=== PATIENT | female | born 1975 | race Caucasian/White ===

== ENCOUNTER 2017-03-27 07:24 | Emergency (ER) | payer MEDICAID ==
--- NOTE | 2017-03-27 07:50 | ER Document Report ---
ED GI/ - General Chief Complaint: Abdominal Pain Stated Complaint: STOMACH PAIN Time Seen by Provider: 03/27/17 07:49 Mode of Arrival: Ambulatory Information source: Patient Notes: 41-year-old female complaining of diarrhea up to 10 times per day for 2 months with abdominal cramping. Similar episode in 2013 in which stool cultures and C. difficile were negative but the Cipro and Flagyl that I prescribed stopped the diarrhea. She did not see gastroenterology for follow-up as recommended. No fever. Tearful. TRAVEL OUTSIDE OF THE [place] IN LAST 30 DAYS: No - Related Data Allergies/Adverse Reactions: No Known Allergies Allergy (Verified 03/27/17 07:29) Past Medical History - General Information source: Patient - Social History Smoking Status: Current Every Day Smoker Frequency of alcohol use: None Drug Abuse: None Lives with: Family Family History: None Renal/ Medical History: Denies: Hx Peritoneal Dialysis Past Surgical History: Reports: Hx Tubal Ligation Review of Systems - Review of Systems Constitutional: No symptoms reported EENT: No symptoms reported Cardiovascular: No symptoms reported Respiratory: No symptoms reported Gastrointestinal: See HPI Genitourinary: No symptoms reported Female Genitourinary: No symptoms reported Musculoskeletal: No symptoms reported Skin: No symptoms reported Hematologic/Lymphatic: No symptoms reported Neurological/Psychological: No symptoms reported Physical Exam - Vital signs Vitals: Temp Pulse Resp BP Pulse Ox 97.7 F 62 16 109/66 99 03/27/17 07:25 03/27/17 07:25 03/27/17 07:25 03/27/17 07:25 03/27/17 07:25 Interpretation: Normal - General General appearance: Appears well, Alert, Anxious Notes: tearful - HEENT Head: Normocephalic, Atraumatic Eyes: Normal Conjunctiva: Normal Pupils: PERRL Mucous membranes: Dry Pharynx: Normal Neck: Supple. No: Lymphadenopathy - Respiratory Respiratory status: No respiratory distress Chest status: Nontender Breath sounds: Normal Chest palpation: Normal - Cardiovascular Rhythm: Regular Heart sounds: Normal auscultation Murmur: No - Abdominal Inspection: Normal Distension: No distension Bowel sounds: Normal Tenderness: Nontender. No: Tender Organomegaly: No organomegaly - Back Back: Normal, Nontender. No: CVA tenderness - Extremities General upper extremity: Normal inspection, Nontender, Normal color, Normal ROM , Normal temperature General lower extremity: Normal inspection, Nontender, Normal color, Normal ROM , Normal temperature, Normal weight bearing. No: Regino's sign - Neurological Neuro grossly intact: Yes Cognition: Normal Orientation: AAOx4 Jose Manuel Coma Scale Eye Opening: Spontaneous [place] Coma Scale Verbal: Oriented Jose Manuel Coma Scale Motor: Obeys Commands Jose Manuel Coma Scale Total: 15 Speech: Normal Motor strength normal: LUE, RUE, LLE, RLE Sensory: Normal - Psychological Associated symptoms: Normal affect, Normal mood - Skin Skin Temperature: Warm Skin Moisture: Dry Skin Color: Normal Skin irregularity: negative: Rash Course - Re-evaluation Re-evalutation: 03/27/17 09:15 serum white count elevated, seg 79%, chem OK, negative , tsh pending 03/27/17 09:16 03/27/17 09:16 03/27/17 09:40 tsh is normal, copy given to pt - Vital Signs Vital signs: Temp Pulse Resp BP Pulse Ox 97.7 F 62 16 109/66 99 03/27/17 07:25 03/27/17 07:25 03/27/17 07:25 03/27/17 07:25 03/27/17 07:25 - Laboratory Result Diagrams: 03/27/17 08:01 03/27/17 08:01 Laboratory results interpreted by me: 03/27/17 03/27/17 08:01 08:01 WBC 15.6 H RDW 14.1 H Seg Neutrophils % 79.0 H Absolute Neutrophils 12.4 H Sodium 146.8 H Chloride 109 H BUN 6 L - EKG Interpretation by Me EKG shows normal: Sinus rhythm, Intervals - qt interval is 440 Rate: Tachycardia - 106 Discharge - Discharge Clinical Impression: Chronic diarrhea Condition: Good Disposition: HOME, SELF-CARE Instructions: Diarrhea, Nonspecific ([facility]) Additional Instructions: please call and 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 you need a colonoscopy. eat yogurt with active bacteria culture like chobani all the stool cultures and c. diff culture were negative in November. call me in 1 hour for the thyroid screening test result copy of labs given to you Please complete the patient satisfaction survey if you get one, and return it.. If you do not receive a survey, then you can go to the [facility] website, [email or web address] and place your comments about your very good care. Thank you very much. It was a pleasure being your medical provider today. Prescriptions: Ciprofloxacin HCl [Cipro 500 mg Tablet] 500 mg PO BID #10 tablet Forms: Return to Work Referrals: FLETCHER AUGUSTINE MD [ACTIVE STAFF] - Follow up as needed
[2017-03-27 08:39] LABS: ABSOLUTE BASOPHILS # (AUTO) 0.1 10^3/uL (0.0-0.2); ABSOLUTE EOSINOPHILS # (AUTO) 0.2 10^3/uL (0.0-0.6); ABSOLUTE LYMPHOCYTES (AUTO) 2.3 10^3/uL (0.5-4.7); ABSOLUTE MONOCYTES (AUTO) 0.7 10^3/uL (0.1-1.4); ABSOLUTE NEUT (AUTO) 12.4 10^3/uL (1.7-8.2); BASOPHILS % (AUTO) 0.3 % (0-2); EOSINOPHILS % (AUTO) 1.4 % (0-6); HEMATOCRIT 43.4 % (36.0-47.0); HEMOGLOBIN 13.9 g/dL (12.0-15.5); HGB HCT DIFFERENCE -1.7; MEAN CORPUSCULAR HEMOGLOBIN 30.7 pg (27.0-33.4); MEAN CORPUSCULAR HGB CONC 32.1 g/dL (32.0-36.0); MEAN CORPUSCULAR VOLUME 96 fl (80-97); MONOCYTES % (AUTO) 4.3 % (3-13); RED BLOOD COUNT 4.54 10^6/uL (3.72-5.28); RED CELL DISTRIBUTION WIDTH 14.1 % (11.5-14.0); WHITE BLOOD COUNT 15.6 10^3/uL (4.0-10.5)
[2017-03-27 09:06] LABS: ALANINE AMINOTRANSFERASE 15 U/L (9-52); ALBUMIN 4.3 g/dL (3.5-5.0); ALKALINE PHOSPHATASE 78 U/L (38-126); ANION GAP 14 (5-19); ASPARTATE AMINO TRANSFERASE 14 U/L (14-36); BILIRUBIN,DIRECT 0.3 mg/dL (0.0-0.4); BILIRUBIN,TOTAL 0.3 mg/dL (0.2-1.3); BLOOD UREA NITROGEN 6 mg/dL (7-20); CALCIUM 9.9 mg/dL (8.4-10.2); CARBON DIOXIDE 24 mmol/L (22-30); CHLORIDE 109 mmol/L (98-107); CREATININE RESULT 0.72 mg/dL (0.52-1.25); GLUCOSE 76 mg/dL (75-110); POTASSIUM 4.3 mmol/L (3.6-5.0); SODIUM 146.8 mmol/L (137-145); TOTAL PROTEIN 7.1 g/dL (6.3-8.2)
[2017-03-27] MEDS ORDERED: CIPROFLOXACIN HCL 500 MG TABLET PO ONE (09:11)
[2017-03-27 09:54] VITALS: BP 116/77
== END 2017-03-27 09:53 | disposition home or self-care (01) ==
LOC: ER 07:24
DX: R19.7 Diarrhea, unspecified (principal); R10.9 Unspecified abdominal pain; F17.200 Nicotine dependence, unspecified, uncomplicated
CPT/HCPCS: 99284; 36415; 84443; 84703; 85025; 80053; J3490